=== PATIENT | female | born 1955 | race Caucasian/White ===

== ENCOUNTER → 2016-09-01 | Day surgery (SDC) | payer OTHER ==
[~2016-09-01] MED LIST: LACTATED RINGER'S 1000 ML INJ 1,000 ML ONE; PROPOFOL 500 MG/50 ML BTL IV ONE
--- NOTE | 2016-09-01 10:20 | GIPROC ---
[facility] [address] [facility], [address] COLONOSCOPY PROCEDURE REPORT EXAM DATE: 09/01/2016 PATIENT NAME: Caridad Taylor MR #: [id number] BIRTHDATE: 1955 ENDOSCOPIST: Richard Layton MD ORDER #: [id number] CAT DRIVER: Gunjan Caceres RN STATUS: outpatient INDICATIONS: The patient is a 60 yr old female here for a colonoscopy due to average risk patient for colon cancer MEDICATIONS: None and Per Anesthesia. PREP QUALITY: The [place] Bowel Prep Score was Right colon 2, Mid colon 3, and Left colon 3. Total = 8. ESTIMATED BLOOD LOSS: None CONSENT: The patient understands the risks and benefits of the procedure and understands that these risks include, but are not limited to: sedation, allergic reaction, infection, perforation and/or bleeding. Alternative means of evaluation and treatment include, among others: physical exam, x-rays, and/or surgical intervention. The patient elects to proceed with this endoscopic procedure. medical equipment was checked for proper function. Hand hygiene and appropriate measures for infection prevention was taken. After the risks, benefits and alternatives of the procedure were thoroughly explained, Informed consent was verified, confirmed and timeout was successfully executed by the treatment team. A digital exam revealed external hemorrhoids The EC-[id number] ([id number]) endoscope was introduced through the anus and advanced to the cecum, which was identified by both the appendix and ileocecal valve. The instrument was then slowly withdrawn as the colon was fully examined. COLON FINDINGS: Moderate diverticulosis was noted in the sigmoid colon. A polypoid shaped sessile polyp ranging between 3-5mm in size was found in the ascending colon. A biopsy was performed using cold forceps. A polypoid shaped sessile polyp ranging between 3-7mm in size was found in the transverse colon. A polypectomy was performed using snare cautery. The resection was complete and the polyp tissue was completely retrieved. A polypoid shaped sessile polyp ranging between 3-5mm in size was found in the sigmoid colon. A polypectomy was performed with cold forceps. The resection was complete and the polyp tissue was completely retrieved. Three polypoid shaped sessile polyps ranging between 3-5mm in size were found in the rectum. Multiple biopsies were performed using cold forceps. Retroflexed views revealed internal hemorrhoids and Retroflexed views revealed medium internal hemorrhoids The scope was then completely withdrawn from the patient and the procedure terminated. PROCEDURE WITHDRAWAL TIME:8minutes ADVERSE EVENTS: There were no complications. IMPRESSIONS: 1. Moderate diverticulosis was noted in the sigmoid colon 2. A sessile polyp ranging between 3-5mm in size was found in the ascending colon; biopsy was performed using cold forceps 3. A sessile polyp ranging between 3-7mm in size was found in the transverse colon; polypectomy was performed using snare cautery 4. A sessile polyp ranging between 3-5mm in size was found in the sigmoid colon; polypectomy was performed with cold forceps 5. Three sessile polyps ranging between 3-5mm in size were found in the rectum; multiple biopsies were performed using cold forceps 6. Retroflexed views revealed internal hemorrhoids 7. Retroflexed views revealed medium internal hemorrhoids 8. Revealed external hemorrhoids RECOMMENDATIONS: 1. Await biopsy results. Biopsy results will not be ready for 7-10 days. If you don't hear from us in two weeks, call our office for results. 2. Continue surveillance 3. High fiber diet 4. No seeds, nuts and popcorn in diet RECALL: Return 1 year Colonoscopy, pending biopsy results Richard Layton MD eSigned: Richard Layton MD 09/01/2016 10:19 AM cc: Ezekiel Arroyo [facility] Schoolwilfrido Sherwood M.D. PATIENT NAME: Caridad Taylor MR#: [id number]
== END | disposition home or self-care (01) ==
LOC: ESDC 08:23
PROVIDERS: ATTEND Internal Medicine Gastroenterology
DX: Z12.11 Encounter for screening for malignant neoplasm of colon (principal); K57.90 Diverticulosis of intestine, part unspecified, without perforation or abscess without bleeding; D12.3 Benign neoplasm of transverse colon; D12.5 Benign neoplasm of sigmoid colon; D12.2 Benign neoplasm of ascending colon; K62.1 Rectal polyp; K64.8 Other hemorrhoids; K64.4 Residual hemorrhoidal skin tags
CPT/HCPCS: 00810; 45385; 88305; J7120